=== PATIENT | female | born 1970 | race Caucasian/White ===

== ENCOUNTER → 2018-09-26 | Outpatient (CLI) | payer BC ==
--- NOTE | 2018-09-26 15:10 | RADIOLOGY REPORT (SQ) ---
EXAM DESCRIPTION: CT FACIAL AREA WITH COMPLETED DATE/TIME: 09/26/2018 2:25 pm REASON FOR STUDY: K11.5 SIALOLITHIASIS K11.5 SIALOLITHIASIS COMPARISON: CT brain 03/20/2018, 04/05/2018 CT facial bones and soft tissues 03/20/2018, 04/05/2018, 05/18/2018 TECHNIQUE: Pre and post sialogram images through the facial bones and orbits windowed for bone and s oft tissue. Additional coronal and sagittal reconstructed images reviewed. All images stored on PAC S. All CT scanners at this facility use dose modulation, iterative reconstruction, and/or weight based d osing when appropriate to reduce radiation dose to as low as reasonably achievable (ALARA). [facility]: Dose Right [facility]: CareDose [facility]: Dose Right [facility]: Teradose 4D [facility]: [place] CONTRAST TYPE AND DOSE: 0.5 mL of Dotarem gadolinium was injected into the patient's left Rolan's duct without complication. Patient states she has a seafood allergy RENAL FUNCTION: Not required RADIATION DOSE: 90 mGy . LIMITATIONS: None. FINDINGS: No sialolithiasis over the right or left parotid or bilateral submandibular glands. Bilat eral sublingual glands demonstrate no calcifications or stones. The left Rolan's duct was cannulated with a sialogram catheter, and 0.5 mL of Dotarem contrast was injected through the catheter to fill the left Rolan's duct and left intraparotid ducts. No ductal strictures. No filling defects in the duct worrisome for mucosal overgrowth or ductal tumor. No du ctal sacculation or outpouchings. Salivary glands demonstrate no gross masses or cysts. No left cheek/facial soft tissue mass. FACIAL BONES: No fracture or bone lesion. ORBITS: Intact. No fracture. Symmetric intact globes and retroorbital soft tissues. PARANASAL SINUSES: Clear. No significant mucosal thickening, mass or fluid. No nasal polyps. Maxilla ry sinus outlets are patent. SOFT TISSUES: No mass or edema. INFERIOR BRAIN: Limited view. No acute findings. OTHER: No other significant finding. IMPRESSION: Normal left-sided parotid sialogram TECHNICAL DOCUMENTATION: JOB ID: [id number] Quality ID # [id number]: Final reports with documentation of one or more dose reduction techniques (e.g., Au tomated exposure control, adjustment of the mA and/or kV according to patient size, use of iterative reconstruction technique) 2010 [employer]- All Rights Reserved Reading location - IP/workstation name: [email or web address]
== END ==
LOC: RAD 14:11
PROVIDERS: ATTEND Otolaryngology Facial Plastic Surgery
DX: K11.5 Sialolithiasis (principal)
CPT/HCPCS: 70487